=== PATIENT | female | born 1990 ===

== ENCOUNTER 2018-06-18 21:36 | Emergency (ER) | payer MEDICAID ==
[2018-06-18 22:08] LABS: BASO # 0.1 K/uL (0.0-0.2); BASO % 0.4 % (0.0-2.0); EOS # 0.1 K/uL (0.0-0.7); EOS % 1.2 % (0.0-4.0); HEMOGLOBIN 14.4 g/dL (11.0-16.0); LYMPH # 2.3 K/uL (1.0-4.3); LYMPH % 19.1 % (20.0-40.0); MEAN CELL VOLUME 93.6 fL (81.0-99.0); MEAN CORPUSCULAR HEMOGLOBIN 31.8 pg (27.0-31.0); MEAN PLATELET VOLUME 10.5 fL (7.2-11.7); MONO % 8.3 % (0.0-10.0); NEUT # 8.6 K/uL (1.8-7.0); RBC 4.51 Mil/uL (3.80-5.20); RED CELL DISTRIBUTION WIDTH 13.5 % (11.5-14.5); WHITE BLOOD COUNT 12.1 K/uL (4.8-10.8)
[2018-06-18 22:18] LABS: HCG,QUALITATIVE URINE NEGATIVE (NEGATIVE)
--- NOTE | 2018-06-18 22:28 | C.PDOC ---
History Of Present Illness <Dayana Schwartz - Last Filed: 06/19/18 00:48> <Pj Epperson - Last Filed: 06/19/18 02:00> Patient's history is limited due to her clinical condition, history is obtained from her family. Patient's family is concerned for worsening psych condition for 1 month. Cousin states patient normally lives with them and patient " will go to the shed in our backyard to have her personal space" but has been in the shed for the past month. Patient is not taking care of herself. Patient presumed noncompliant with her psych meds. LIMITED DUE TO CLIN COND HX BY FAMILY CONCERN FOR WORSENING PSYCH CONDITION X 1 MO. COUSIN STATES PT NORMALLY LIVES W THEM, PT "WILL GO TO THE SHED IN OUR [place] TO HAVE HER PERSONAL SPACE" BUT HAS BEEN IN SHED X 1 MO. NOT TAKING CARE OF HERSELF, PRESUMED NONCOMPLIANT W PSYCH MEDS. ROS UTO EXAM NAD DISHEVELED PSYCH POOR EYE CONTACT, POORLY INTERACTIVE NONVERBAL. EATING WO DIFF. REMAINDER NEG (Dayana Schwartz) History Per: Family History/Exam Limitations: clinical condition Onset/Duration Of Symptoms: Days Current Symptoms Are (Timing): Still Present Suicide/Self Injury Attempted (Context): None Modifying Factor(s): None Severity: None Associated Symptoms: Paranoia. denies: Depression, Suicidal Thoughts, Suicidal Plan Recent travel outside of the [place]: No Additional History Per: Family <Dayana Schwartz - Last Filed: 06/19/18 00:48> <Pj Epperson - Last Filed: 06/19/18 02:00> Time Seen by Provider: 06/18/18 22:22 Chief Complaint (Nursing): Psychiatric Evaluation Past Medical History Reviewed: Historical Data, Nursing Documentation, Vital Signs - Medical History PMH: No Chronic Diseases Surgical History: No Surg Hx Family History: States: Unknown Family Hx - Social History Hx Alcohol Use: No Hx Substance Use: No <Dayana Schwartz - Last Filed: 06/19/18 00:48> Vital Signs: Last Vital Signs Temp 98.3 F 06/18/18 21:42 Pulse 103 H 06/18/18 21:42 Resp 20 06/18/18 21:42 BP 116/85 06/18/18 21:42 Pulse Ox 98 06/19/18 00:50 Review Of Systems Review Of Systems: ROS cannot be obtained secondary to pt's inabilty to answer questions. <Dayana Schwartz - Last Filed: 06/19/18 00:48> Physical Exam - Physical Exam Appears: No Acute Distress, Other (disheveked) Skin: Normal Color, Warm, Dry Head: Atraumatic, Normacephalic Eye(s): bilateral: Normal Inspection Neck: Normal ROM, Supple Chest: Symmetrical Cardiovascular: Rhythm Regular Respiratory: Normal Breath Sounds, No Rales, No Rhonchi, No Wheezing Gastrointestinal/Abdominal: Soft, No Tenderness, No Guarding, No Rebound Extremity: Normal ROM, No Tenderness, No Swelling Neurological/Psych: Other (poor eye contact, poor interactive non verbal, eating wo difficulty) Gait: Steady <Dayana Schwartz - Last Filed: 06/19/18 00:48> ED Course And Treatment - Laboratory Results Result Diagrams: 06/18/18 22:04 06/18/18 22:04 O2 Sat by Pulse Oximetry: 98 (ON RA) Pulse Ox Interpretation: Normal - Radiology CXR: Interpreted by Me CXR Interpretation: Yes: No Acute Disease <Dayana Schwartz - Last Filed: 06/19/18 00:48> - Laboratory Results Result Diagrams: 06/18/18 22:04 06/18/18 22:04 Lab Interpretation: Normal (tox and etoh levels negative.) ECG: Interpreted By Ca ECG Rhythm: Sinus Rhythm ECG Interpretation: Normal Rate From EC <Pj Epperson - Last Filed: 06/19/18 02:00> Progress - Data Reviewed Data Reviewed: Lab, Diagnostic imaging, EKG <Dayana Schwartz - Last Filed: 06/19/18 00:48> <Pj Epperson - Last Filed: 06/19/18 02:00> - Re-Evaluation Re-evaluation Note: 06/19/18 00:50 D/W CRISIS, PROBABLE INVOL AND WILL NEED [facility] [place]. ETOH, EKG PENDING (Dayana Schwartz) Medical Decision Making <Dayana Schwartz - Last Filed: 06/19/18 00:48> <Pj Epperson - Last Filed: 06/19/18 02:00> Medical Decision Making: Impression: psych evaluation Plan: * EKG * Labs * CXR * 1:1 Obs * UA (Dayana Schwartz) signed over @ 0100, pending psych eval after ETOH level and EKG performed EKG NSR 79 tox/etoh neg pt seen and examined; physically overall normal, bizarre affect, argumentative. 0200: medically cleared for inpatient psych evaluation. (Pj Epperson) Disposition - Disposition Disposition Time: 01:00 <Dayana Schwartz - Last Filed: 06/19/18 00:48> <Pj Epperson - Last Filed: 06/19/18 02:00> - Disposition Condition: STABLE Forms: ESILLAGE (British) - Clinical Impression Clinical Impression: Schizophrenia - Scribe Statement The provider has reviewed the documentation as recorded by the Scribe <Dayana Schwartz - Last Filed: 06/19/18 00:48> <Pj Epperson - Last Filed: 06/19/18 02:00> - Scribe Statement Bryon Boyle All medical record entries made by the Scribe were at my direction and personally dictated by me. I have reviewed the chart and agree that the record accurately reflects my personal performance of the history, physical exam, medical decision making, and the department course for this patient. I have also personally directed, reviewed, and agree with the discharge instructions and disposition. (Dayana Schwartz) Physician Patient Turnover Patient Signed Over To: Pj Epperson Handoff Comments: FU EKG, ETOH, PSYCH DISPO <Dayana Schwartz - Last Filed: 06/19/18 00:48>
[2018-06-18 22:29] LABS: ALB/GLOB RATIO 1.3 (1.0-2.1); ALBUMIN 4.6 g/dL (3.5-5.0); ALT/SGPT 14 U/L (9-52); AST/SGOT 21 U/L (14-36); BLOOD UREA NITROGEN 7 mg/dL (7-17); CALCIUM 9.6 mg/dl (8.6-10.4); GFR AFRICAN-AMERICAN > 60; GFR NON-AFRICAN AMERICAN > 60; SQUAMOUS EPITHIAL 3 /hpf (0-5); URINE AMORPHOUS SEDIMENT MODERATE /ul (<OCC); URINE BILIRUBIN NEGATIVE (NEGATIVE); URINE BLOOD NEGATIVE (NEGATIVE); URINE CLARITY Turbid (Clear); URINE GLUCOSE (UA) NORMAL (Normal); URINE LEUKOCYTE ESTERASE TRACE Leu/uL (Negative); URINE PROTEIN NEGATIVE (NEGATIVE)
[2018-06-18 22:30] LABS: URINE COLOR YELLOW (YELLOW)
[2018-06-18 22:31] LABS: BARBITURATES, UR NEGATIVE (NEGATIVE); BENZODIAZEPINES, UR NEGATIVE (NEGATIVE); OPIATES, UR NEGATIVE (NEGATIVE); PHENCYCLIDINE, UR NEGATIVE (NEGATIVE)
[2018-06-19 04:17] VITALS: O2SAT 100
--- NOTE | 2018-06-19 08:19 | RAD ---
Date of service: 06/18/2018 PROCEDURE: CHEST RADIOGRAPH, 1 VIEW HISTORY: MED CLEAR COMPARISON: None available. FINDINGS: LUNGS: Clear. PLEURA: No pneumothorax or pleural fluid seen. CARDIOVASCULAR: Normal. OSSEOUS STRUCTURES: No significant abnormalities. VISUALIZED UPPER ABDOMEN: Normal. OTHER FINDINGS: None. IMPRESSION: No active disease.
[2018-06-19 11:24] VITALS: PULSE 98; RESP 18
[2018-06-19 12:46] VITALS: BP 120/92; TEMP 98.3
--- NOTE | 2018-06-20 12:17 | CARD ---
APPROVED REPORT Date of service: 06/19/2018 EKG Measurement Heart [id number] [place] [id number] <Conclusion> Sinus rhythm with short OH Otherwise normal ECG
== END 2018-06-19 12:55 | disposition short-term general hospital (02) ==
LOC: C.ER 21:36
DX: F20.9 Schizophrenia, unspecified (principal)